=== PATIENT | male | born 1975 | race Caucasian/White ===

== ENCOUNTER 2017-01-29 00:41 | Emergency (ER) | payer MEDICAID, OTHER ==
[~2017-01-29] VITALS: Ht 175.3 cm; Wt 79.0 kg
[2017-01-29] MEDS ORDERED: BACITRACIN ZINC OINT UDPKT TOP ONE (01:45)
[2017-01-29] MEDS ORDERED: TETANUS, DIPHTHERIA, PERTUSSIS VAC/PF 0.5ML (>7YR OLD) IM ONE (01:45)
[2017-01-29] MEDS ORDERED: LIDOCAINE HCL 1% 20ML VIAL (Pyxis) INJ MC ONE (02:30)
[2017-01-29 03:10] VITALS: BP 120/92
== END 2017-01-29 03:10 | disposition home or self-care (01) ==
LOC: ER 00:43
DX: S91.109A Unspecified open wound of unspecified toe(s) without damage to nail, initial encounter (principal); X58.XXXA Exposure to other specified factors, initial encounter; Y93.89 Activity, other specified; Y99.8 Other external cause status; Y92.89 Other specified places as the place of occurrence of the external cause
CPT/HCPCS: 90471; 90715; 99283; J3490; Z7610

== ENCOUNTER 2018-01-16 15:25 | Emergency (ER) | payer MEDICAID ==
[~2018-01-16] VITALS: Ht 177.8 cm; Wt 80.0 kg
[2018-01-16] MEDS ORDERED: KETOROLAC 30MG/ML VIAL IM ONE (18:00)
[2018-01-16 18:20] LABS: BASOPHILS % 0.3 % (0.0-2.0); EOSINOPHILS % 2.4 % (0.0-5.0); HEMATOCRIT. 37.8 % (42.0-52.0); HEMOGLOBIN. 12.3 g/dL (14.0-18.0); LYMPHOCYTES % 32.7 % (20.0-50.0); MEAN CORPUSCULAR HEMOGLOBIN 18.8 pg (28.0-32.0); MEAN PLATELET VOLUME 8.8 fl (7.4-10.4); MONOCYTES % 7.7 % (2.0-8.0); NEUTROPHILS % 56.9 % (40.0-76.0); PLATELET 202 x1000/uL (130-400); RED BLOOD CELL COUNT 6.51 mill/uL (4.7-6.1); RED CELL DISTRIBUTION WIDTH 15.7 % (11.6-14.6)
[2018-01-16 18:24] LABS: CHLORIDE 108 mEq/L (98-107)
[2018-01-16 18:25] LABS: PROTHROMBIN TIME 10.8 sec (9.4-11.6)
[2018-01-16 18:54] LABS: CLARITY URINE CLEAR (CLEAR); COLOR URINE YELLOW (YELLOW); KETONES URINE NEGATIVE (NEGATIVE); LEUKOCYTE ESTERASE URINE NEGATIVE (NEGATIVE); NITRITE URINE NEGATIVE (NEGATIVE); OCCULT BLOOD URINE NEGATIVE (NEGATIVE); PROTEIN URINE NEGATIVE (NEGATIVE); SPECIFIC GRAVITY URINE 1.014 (1.005-1.030); UROBILINOGEN URINE 0.2 E.U./dL (0.2-1.0)
[2018-01-16 19:15] LABS: *BARBITURATES SCREEN URINE NEGATIVE (NEGATIVE); *COCAINE SCREEN URINE NEGATIVE (NEGATIVE); METHADONE URINE SCREEN NEGATIVE (NEGATIVE); OPIATES URINE SCREEN NEGATIVE (NEGATIVE); PHENCYCLIDINE URINE SCREEN NEGATIVE (NEGATIVE)
[2018-01-16 19:15] LABS: PLATELET ESTIMATE NORMAL
[2018-01-16 19:16] LABS: *AMPHETAMINES SCREEN URINE NEGATIVE (NEGATIVE); *BENZODIAZEPINES SCREEN URINE NEGATIVE (NEGATIVE); CANNABINOID URINE SCREEN NEGATIVE (NEGATIVE)
[2018-01-16 20:05] VITALS: BP 129/78
== END 2018-01-16 20:20 | disposition home or self-care (01) ==
LOC: ER 17:49
DX: R51 Headache (principal); R42 Dizziness and giddiness; R79.1 Abnormal coagulation profile; Z79.899 Other long term (current) drug therapy
CPT/HCPCS: 36415; 70450; 71045; 80053; 80305; 81003; 85025; 85610; 93005; 96372; 99285; G0482; J1885; Z7610